=== PATIENT | female | born 1945 | race Caucasian/White ===

== ENCOUNTER 2017-03-29 11:42 | Inpatient (IN) | payer MEDICARE ==
[~2017-03-29] VITALS: Ht 157.5 cm; Wt 70.5 kg
[2017-03-29] VITALS (8 sets, daily range): BP systolic 141–161; BP diastolic 74–94; PULSE 84–97; RESP 18; TEMP 97.1–98.1; O2SAT 94–97
[~2017-03-29 11:42] MED LIST: ASPI81TA11 PO; CITA20 PO; CLOP75 PO; LIPI20TA PO; NORV5TAB PO; PRIL20TA2 PO; SERO100T PO; ZOLP10TA3 PO
[2017-03-29] MEDS ORDERED: SODIUM CHLOR 0.9% 1000 ML INJ 1,000 ML IV ONE (11:54)
[2017-03-29 12:02] LABS: I-STAT POTASSIUM 5.9 MMOL/L (3.5-4.9); I-STAT SODIUM 139 MMOL/L (138-146)
[2017-03-29 12:05] LABS: AUTOMATED NEUTROPHIL # 4.4 TH/MM3 (1.8-7.7); BASOPHIL % 0.5 % (0.0-2.0); EOSINOPHIL # 0.3 TH/MM3 (0-0.4); EOSINOPHIL % 3.7 % (0.0-4.0); HEMATOCRIT 38.8 % (35.0-46.0); HEMO FLAGS DIFF FINAL; LYMPHOCYTE # 1.6 TH/MM3 (1.0-4.8); MEAN CELL VOLUME 93.1 FL (80.0-100.0); MEAN CORPUSCULAR HEMOGLOBIN 32.2 PG (27.0-34.0); MEAN CORPUSCULAR HGB CONC 34.6 % (32.0-36.0); MONO % 7.4 % (0.0-8.0); NEUT % 64.4 % (16.0-70.0); PLATELET COUNT 289 TH/MM3 (150-450); RED BLOOD COUNT 4.16 MIL/MM3 (4.00-5.30); RED CELL DISTRIBUTION WIDTH 13.3 % (11.6-17.2); WHITE BLOOD COUNT 6.8 TH/MM3 (4.0-11.0)
--- NOTE | 2017-03-29 12:13 | RADRPT ---
EXAM DATE/TIME: 03/29/2017 11:54 [facility] COMPARISON: MRI BRAIN W/O CONTRAST, April 08, 2014, 13:30. CT BRAIN W/O CONTRAST, April 08, 2014, 9:45. INDICATIONS : Leftside weakness RADIATION DOSE: 56.38 CTDIvol (mGy) This report was called by Dr. Rodriguez to Dr. Sparks. at 12: 09 PM MEDICAL HISTORY : Non-responsive. SURGICAL HISTORY : Non-responsive. ENCOUNTER: Initial ACUITY: 1 day PAIN SCALE: Non-responsive LOCATION: Bilateral cranial TECHNIQUE: Multiple contiguous axial images were obtained of the head. Using automated exposure control and adj ustment of the mA and/or kV according to patient size, radiation dose was kept as low as reasonably a chievable to obtain optimal diagnostic quality images. FINDINGS: CEREBRUM: The ventricles are normal for age. No evidence of midline shift, mass lesion, hemorrhage or acute in farction. There is an old infarct at the right caudate head, anterior limb of the internal capsule, and anterior right basal ganglia. This was present previously. No extra-axial fluid collections are s een. POSTERIOR FOSSA: The cerebellum and brainstem are intact. The 4th ventricle is midline. The cerebellopontine angle i s unremarkable. EXTRACRANIAL: The visualized portion of the orbits is intact. There is mild bilateral maxillary sinus disease and l eft ethmoid sinus disease. SKULL: The calvaria is intact. No evidence of skull fracture. CONCLUSION: 1. No acute areas of hemorrhage or mass effect are seen. 2. 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 Leonides Rodriguez MD on March 29, 2017 at 12:05 Board Certified Radiologist. This report was verified electronically.
[2017-03-29 12:14] LABS: APTT (PATIENT) 22.4 SEC (24.3-30.1); INTERNATIONAL NORMALIZED RATIO 0.9 RATIO; PROTHROMBIN TIME - PATIENT 10.1 SEC (9.8-11.6)
[2017-03-29] MEDS: SODIUM CHLOR 0.9% 1000 ML INJ 1,000 ML IV SCH ×2 (12:24→22:10)
[2017-03-29 12:25] LABS: BETA HCG QUANT 4 MIU/ML (0-5); CREATINE KINASE 107 U/L (26-192)
[2017-03-29] MEDS: ASPIRIN EC 325 MG TABEC PO SCH (12:30)
--- NOTE | 2017-03-29 12:36 | PD ---
HPI Chief Complaint: Stroke Alert Time Seen by Provider: 11:53 Travel History International Travel<30 days: No Contact w/Intl Traveler<30days: No Traveled to known affect area: No History of Present Illness HPI This is a 71-year-old female who presents to the emergency department having altered mental status. 45 minutes prior to arrival she was at home with her and reportedly normal. She went upstairs to get changed to go out with her friends when she yelled to him and he reports she had some slurred speech and weakness. Patient isn't able to provide much history. PFSH Past Medical History Anxiety: Yes Cancer: No Cardiovascular Problems: Yes High Cholesterol: Yes Cerebrovascular Accident: Yes (2010) Diminished Hearing: No Endocrine: No GERD: Yes Genitourinary: No Hypertension: Yes Musculoskeletal: Yes Neurologic: Yes Reproductive: No Respiratory: Yes Sleep Apnea: Yes Menopausal: Yes Past Surgical History Gynecologic Surgery: Yes (HYSTERECTOMY) Hysterectomy: Yes (PARTIAL 2004) Social History Alcohol Use: Yes (socially -wine, mix drinks) Tobacco Use: No Substance Use: No Allergies-Medications (Allergen,Severity, Reaction): Coded Allergies: Flu Vaccine (Verified Allergy, Severe, Shortness of Breath, 04/08/14) Lortab (Verified Allergy, Mild, Nausea/Vomiting, 04/08/14) Reported Meds & Prescriptions Reported Meds & Active Scripts Active Plavix (Clopidogrel Bisulfate) 75 Mg Tab 75 Mg PO DAILY Reported Lipitor (Atorvastatin Calcium) 20 Mg Tab 20 Mg PO DAILY Ambien 10 Mg Tab (Zolpidem Tartrate) 10 Mg Tab 10 Mg PO DAILY Prilosec Otc (Omeprazole Magnesium) 20 Mg Tab 20 Mg PO DAILY Seroquel (Quetiapine Fumarate) 100 Mg Tab 100 Mg PO DAILY Aspirin EC (Aspirin) 81 Mg Tab 81 Mg PO DAILY Celexa 20 Mg Tab (Citalopram Hydrobromide) 20 Mg Tab 20 Mg PO DAILY Norvasc (Amlodipine Besylate) 5 Mg Tab 2.5 Mg PO DAILY Review of Systems ROS Limitations: Poor Historian Physical Exam Narrative GENERAL:Well appearing, no acute distress SKIN: Focused skin assessment warm and dry. HEAD: Atraumatic. Normocephalic. EYES: Pupils equal and round. No injection or drainage. ENT: Moist mucous membranes NECK: Trachea midline. CARDIOVASCULAR: Regular rate and rhythm. No murmur appreciated. RESPIRATORY: Clear to auscultation. Breath sounds equal bilaterally. GASTROINTESTINAL: Abdomen soft, non-tender, nondistended. MUSCULOSKELETAL: No obvious deformities. NEUROLOGICAL: Somnolent but awakens to answer questions. Able to answer her name but the month wrong.. No obvious cranial nerve deficits. Moderate dysarthria, moderate aphasia 4 out of 5 strength in the right lower extremity, otherwise extremities are strong. She has bilateral ataxia which appears to be related to attention. PSYCHIATRIC: Appropriate mood and affect; insight and judgment normal. Data Data Last Documented VS Vital Signs Date Time Temp Pulse Resp B/P Pulse Ox O2 Delivery O2 Flow Rate FiO2 03/29/17 11:50 97 Nasal Cannula 2.00 03/29/17 11:47 85 18 141/85 Orders Diet Npo (03/29/17 Lunch) Activity Bed Rest (03/29/17 ) Electrocardiogram (03/29/17 ) I-Stat Creatinine (03/29/17 11:54) I-Stat Profile (03/29/17 11:54) Prothrombin Time / Inr (Pt) (03/29/17 11:54) Act Partial Throm Time (Ptt) (03/29/17 11:54) Complete Blood Count With Diff (03/29/17 11:54) Fibrinogen (03/29/17 11:54) Creatine Kinase (Cpk) (03/29/17 11:54) Troponin I (03/29/17 11:54) Ua Includes Microscopic (03/29/17 11:54) Drug Screen, Random Urine (03/29/17 11:54) Type And Screen (03/29/17 11:54) Ct Brain W/O Iv Contrast(Rout) (03/29/17 ) Cta Brain W Iv Contrast W 3d (03/29/17 11:54) Cta Neck W Iv Contrast W 3d (03/29/17 11:54) Ct Cerebral Perf W Iv Cont W3d (03/29/17 11:54) Beta Hcg (Quant/Titer) (03/29/17 11:54) Consult Neurology (03/29/17 ) Blood Glucose (03/29/17 11:54) Ecg Monitoring (03/29/17 11:54) Neuro Checks Q2HX12,Q4H (03/29/17 11:54) Nursing Bedside Swallow Assess .ONCE (03/29/17 11:54) Iv Access Insert/Monitor (03/29/17 11:54) NPO (03/29/17 11:54) Oximetry (03/29/17 11:54) Oxygen Administration (03/29/17 11:54) Sodium Chlor 0.9% 1000 Ml Inj (Ns 1000 M (03/29/17 11:54) Resp Oxygen Rajinder C Titrat 1-4 L (03/29/17 11:54) Cath For Specimen (03/29/17 11:54) (Hub Use Only)Inp Phy Cons/Ref (03/29/17 ) Westergren Sedimentation Rate (03/29/17 12:24) Rapid Plasma Regin (Rpr) W Ttr (03/29/17 12:24) Aisha Screen (03/29/17 12:24) Thyroid Stimulating Hormone (03/29/17 12:24) Free Thyroxine (T4) (03/29/17 12:24) Vitamin B1 (Thiamine) (03/29/17 12:24) Vitamin B12 (03/29/17 12:24) Urinalysis - C+S If Indicated (03/29/17 12:24) Ammonia (03/29/17 12:24) Mri Brain W&W/O Contrast (03/29/17 12:24) Eeg Study (03/29/17 12:24) Holter Monitor Recording (03/29/17 12:24) Special Events Manager / Telemetry HU.Q8H (03/29/17 12:24) ^ Seizure Precautions (03/29/17 12:24) [place] (03/29/17 12:24) ^ Other Nursing Orders (03/29/17 12:24) Sodium Chlor 0.9% 1000 Ml Inj (Ns 1000 M (03/29/17 12:24) ^ Other Nursing Orders (03/29/17 12:24) ^ Other Nursing Orders (03/29/17 12:24) Arterial Blood Gas (Abg) (03/29/17 12:24) Drug Screen, Random Urine (03/29/17 12:24) Scd&Teds Bilateral/Knee High HU.QSHIFT (03/29/17 12:24) Admit Order (Ed Use Only) (03/29/17 12:30) Clopidogrel (Plavix) (03/30/17 09:00) Aspirin Ec (Ecotrin Ec) (03/29/17 12:30) Labs Laboratory Tests Test 03/29/17 11:49 White Blood Count 6.8 TH/MM3 Red Blood Count 4.16 MIL/MM3 Hemoglobin 13.4 GM/DL Bedside Hemoglobin 12.6 G/DL Hematocrit 38.8 % Bedside Hematocrit 37.0 % Mean Corpuscular Volume 93.1 FL Mean Corpuscular Hemoglobin 32.2 PG Mean Corpuscular Hemoglobin 34.6 % Concent Red Cell Distribution Width 13.3 % Platelet Count 289 TH/MM3 Mean Platelet Volume 8.4 FL Neutrophils (%) (Auto) 64.4 % Lymphocytes (%) (Auto) 24.0 % Monocytes (%) (Auto) 7.4 % Eosinophils (%) (Auto) 3.7 % Basophils (%) (Auto) 0.5 % Neutrophils # (Auto) 4.4 TH/MM3 Lymphocytes # (Auto) 1.6 TH/MM3 Monocytes # (Auto) 0.5 TH/MM3 Eosinophils # (Auto) 0.3 TH/MM3 Basophils # (Auto) 0.0 TH/MM3 CBC Comment DIFF FINAL Differential Comment Prothrombin Time 10.1 SEC Prothromb Time International 0.9 RATIO Ratio Activated Partial 22.4 SEC Thromboplast Time Fibrinogen 303 mg/dL Bedside Sodium 139 MMOL/L Bedside Potassium 5.9 MMOL/L Bedside Chloride 105 MMOL/L Bedside Blood Urea Nitrogen 18 MG/DL Bedside Creatinine 0.8 MG/DL Bedside Glucose 108 MG/DL Total Creatine Kinase 107 U/L Troponin I LESS THAN 0.02 NG/ML Human Chorionic Gonadotropin, 4 MIU/ML Quant MDM Medical Decision Making Medical Screen Exam Complete: Yes Emergency Medical Condition: Yes Interpretation(s) no tachycardia, mild hypertension hyperkalemia likely due to hemolysis ct: old infarct, no acute intracranial hemorrhage. Differential Diagnosis Ischemic stroke, hemorrhagic stroke, seizure, polypharmacy Narrative Course This is a 71-year-old female who presents to the emergency department with slurred speech and weakness that started 45 minutes prior to arrival. On exam she is quite somnolent and difficult to arouse but when she does awaken she is able to answer some questions. She does seem to have some dysarthria and she appears weak in the right lower extremity. She was placed on a monitor and an IV was established. She was immediately transported to CT in the setting of a stroke alert. CT imaging demonstrates an old infarct but no acute intracranial hemorrhage. Dr. Abel the neurologist came to assess the patient and on his reassessment the patient was awake, alert and able to move all extremities. Appears her symptoms have resolved. Patient will be admitted for TIA evaluation. I suspect there is some component of polypharmacy contributing to the patient's presentation as she is on seroquel and lamictal. Critical Care Narrative Aggregate critical care time was 35 minutes. Time to perform other separately billable procedures was not included in the critical care time. My time did not include minutes spent treating any other patients simultaneously or on activities that did not directly contribute to the patient's treatment. The services I provided to this patient were to treat and/or prevent clinically significant deterioration that could result in: disability, I provided critical care services requiring my management, as noted below: Chart data review, documentation time, medication orders and management, vital sign assessments/reviewing monitor data, ordering and reviewing lab tests, ordering and interpreting/reviewing x-rays and diagnostic studies, care of the patient and discussion of the patient with the admitting physicians. Diagnosis Primary Impression: TIA (transient ischemic attack) Qualified Code: G45.9 - Transient cerebral ischemia, unspecified type Admitting Information Admitting Physician Requests: Admit Brianna Sparks MD Mar 29, 2017 12:36
[2017-03-29 12:51] LABS: BLOOD GAS BASE EXCESS 0.1 mmol/L (-2-2); BLOOD GAS HCO3 25 mmol/L (22-26); BLOOD GAS METHEMOGLOBIN 0.6 % (0-2); BLOOD GAS O2 HGB SATURATION 92 % (90-100); BLOOD GAS OXYGEN CONTENT 15.3 Vol % (12.0-20.0); BLOOD GAS PCO2 43 mmHg (38-42); BLOOD GAS PO2 67 mmHG (61-120); BLOOD GAS TOTAL HGB 11.8 G/DL (12.0-16.0); CRITICAL VALUE NO; FIO2 21 %; TEMP CORR TO 98.6
[2017-03-29 12:52] LABS: DRAW SITE RT RADIAL; NUMBER OF ARTERIAL PUNCTURES 1; STAT YES; ULNAR PULSE PRESENT
--- NOTE | 2017-03-29 13:06 | MB ---
cc: MIO ESTES DATE OF CONSULTATION: 03/29/2017 HISTORY OF PRESENT ILLNESS The patient is a 71-year-old right-handed woman with history of hypertension. In 2009 she tells me she had a stroke which affected her short-term memory. She does not take an aspirin a day, however and at about 11 o'clock this morning her heard her call out and then she seemed confused, possibly a little bit of weakness on the right side. When she got to the ER a stroke alert was called. She was seen by Dr. Duong in April of 2014, came in for slurred speech, some intermittent slurring of speech, fell down some steps at that time, right arm and leg numbness. ___ but she had denied it. She had a right temporal laceration. She had a history of stroke in the past and hyperlipidemia at that time. She was on Seroquel, Lamictal, Ambien, baby aspirin and hypertensives at that time. CT showed old right carotid infarct. MRI of the brain did not show any acute infarct. 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 She added Plavix on at that time. The neck CTA was performed at that time. No evidence of significant disease, left common carotid was normal, a mild stenosis of the left subclavian. She never did have a CTA of the head at that time. REVIEW OF SYSTEMS She denies any headache. She denies any history of diabetes, [place], stent, angioplasty, atrial fibrillation, Coumadin, renal, hepatic or pulmonary disease, thyroid disease, lupus, ulcer, cancer or seizure. SOCIAL HISTORY Nonsmoker, nondrinker, lives with her . FAMILY HISTORY Negative for cancer, seizure, stroke. MEDICATIONS AT HOME 1. Amlodipine. 2. Citalopram. 3. Fenofibrate. 4. Lamictal 50 mg twice a day. 5. Protonix. 6. Oxybutynin 5 mg a day. 7. Seroquel 50 b.i.d. She evidently sees Dr. Osuna. May take some Ambien. It appears she is on Plavix and Atorvastatin and takes Lamictal also 100 b.i.d. so a total of 150 b.i.d. of Lamictal. It is unclear in my mind if she is on 50 b.i.d. of Seroquel or 100 b.i.d. PHYSICAL EXAMINATION VITAL SIGNS: Today 85, 18, 141/85. O2 sat 96%. NECK: There were no carotid bruits. HEART: Regular rhythm. I do not detect a murmur. Pupils are equal. Visual de la rosa are full. Extraocular movements intact without nystagmus. Face is symmetric. Tongue was midline. Facial sensation was intact to pinprick and there is no drift. She had normal strength in upper and lower extremities bilaterally. Toes are downgoing bilaterally. DTRs trace throughout. Pinprick was intact throughout. She knows the year. She knows she is in the hospital, although she said [facility]. Calculations and naming are normal. She showed me her left thumb well. She is a little lethargic but otherwise her neurological exam is normal. No facial droop is noted. LABORATORY DATA CBC is normal. UA has been normal in the past. Basic metabolic profile potassium 5.9, otherwise normal today. Glucose 108, LDL cholesterol was 96 back in 2013. Coags are normal today. IMAGING STUDIES CAT scan of the brain today shows old right lacunar infarct, unchanged from prior, otherwise normal. Head CTA back in April of 2015 as noted, moderately severe focal stenosis in distal left M1 in 2013. In fact looking at the films it does appear to be significantly narrowed at that time. IMPRESSION I think at this time she looks normal neurologically, I would not give her TPA. NIH stroke scale is zero. Concern is however, for this left MCA stenosis and we will have to see what an MRI shows. We are going to repeat her CTA at this time, give her some IV fluids. Will check an ABG on her, she is somewhat lethargic, hold her sedating meds. Other labs I note she had an echo in 2013 and showed a normal ejection fraction, the valves looked okay, left atrial size was normal. I am not sure why she is so lethargic, could be medication effect. We will check that blood gas and an EEG. MD FERNANDO Kemp/NATTY /12:22 PM /12:40 PM
--- NOTE | 2017-03-29 13:07 | RADRPT ---
EXAM DATE/TIME: 03/29/2017 12:23 [facility] COMPARISON: CT BRAIN W/O CONTRAST, March 29, 2017, 11:54. INDICATIONS : Left side weakness. IV CONTRAST: 60 cc Omnipaque 350 (iohexol) IV ; Cumulative dose for multiple exams. RADIATION DOSE: 14.90 CTDIvol (mGy) ; Combined studies MEDICAL HISTORY : Cerebrovascular disease. SURGICAL HISTORY : Unable to obtain ENCOUNTER: Initial ACUITY: 1 day PAIN SCALE: 0/10 LOCATION: CTA HEAD TECHNIQUE: Volumetric scanning was performed using a multi-row detector CT scanner. The data was post processed with a variety of visualization algorithms including full volume maximum intensity projection, multi -planar sliding thin slab reformation, curved planar reformation, and surface rendering techniques. Using automated exposure control and adjustment of the mA and/or kV according to patient size, radiat ion dose was kept as low as reasonably achievable to obtain optimal diagnostic quality images. FINDINGS: Both distal internal carotid arteries are widely patent. The left vertebral originates directly from the arch. Both left and right vertebral or patent. The left is quite small in size. Basilar is patent . The examination demonstrates an area of narrowing in the mid aspect of the M1 segment. There is defin itely flow distal to this. The M2 branches are unremarkable appearance. This would suggest possible i ntracranial atherosclerotic disease however, a small amount of embolic material in this area is not e xcluded. Again, there is good flow distal to this. The appearance of the right middle cerebral circulation and the anterior circulation is within normal limits. The left posterior cerebral feeds via the P-comm. The posterior cerebral circulation is otherwise wid florentin patent. CONCLUSION: 1. There is an area of narrowing in the mid aspect of the M1 segment on the left possibly representin g intracranial atherosclerotic disease. This could also represent a small amount of embolic material. There is good flow distal to this. 2. The left vertebral originates directly from the arch. 3. Right middle cerebral circulation appears patent. No large or central vessel occlusion seen. Flavio Montes MD on March 29, 2017 at 12:53 Board Certified Radiologist. This report was verified electronically.
[2017-03-29 13:24] LABS: BLOOD, URINE NEG (NEG); GLUCOSE,URINE NEG (NEG); KETONE, URINE NEG (NEG); NITRITE,URINE NEG (NEG); URINE COLOR LIGHT-YELLOW (YELLW/STRAW)
[2017-03-29 13:37] LABS: AMPHETAMINE, URINE NEG (NEG); BARBITURATES, URINE NEG (NEG); COCAINE, URINE NEG (NEG)
[2017-03-29] MEDS ORDERED: IOHEXOL 350 MG/ML 10 ML VIAL (for RAD DIAG) IV ONE (13:39)
[2017-03-29] MEDS ORDERED: ACETAMINOPHEN 325 MG TAB PO PRN (13:45)
[2017-03-29] MEDS ORDERED: SODIUM CHLORIDE 0.9% FLUSH 10 ML FLUSH IV FLUSH PRN (13:45)
[2017-03-29] MEDS ORDERED: NALOXONE HCL 0.4 MG/ML AMP IV PRN (13:45)
[2017-03-29] MEDS ORDERED: LACTULOSE SYRUP 20 GM/30 ML CUP PO PRN (13:45)
[2017-03-29] MEDS ORDERED: SENNOSIDES 8.6 MG TAB PO PRN (13:45)
[2017-03-29] MEDS ORDERED: ONDANSETRON HCL 4 MG/2 ML VIAL IVP PRN (13:45)
[2017-03-29] MEDS ORDERED: BISACODYL 10 MG SUPP RECTAL PRN (13:45)
[2017-03-29] MEDS ORDERED: MAGNESIUM HYDROXIDE SUSP 30 ML CUP PO PRN (13:45)
[2017-03-29 13:46] LABS: FREE T4 0.64 NG/DL (0.76-1.46)
--- NOTE | 2017-03-29 13:51 | RADRPT ---
EXAM DATE/TIME: 03/29/2017 12:23 [facility] COMPARISON: CTA BRAIN W 3D RECON, March 29, 2017, 12:23. CT BRAIN W/O CONTRAST, March 29, 2017, 11:54. INDICATIONS : Left side weakness. IV CONTRAST: 40 cc Omnipaque 350 (iohexol) IV RADIATION DOSE: 137.02 CTDIvol (mGy) MEDICAL HISTORY : Cerebrovascular disease. SURGICAL HISTORY : None. ENCOUNTER: Initial ACUITY: 1 day PAIN SCALE: 0/10 LOCATION: Perfusion TECHNIQUE: CT perfusion of the brain was performed with calculation of input and output functions and generation of color coded blood flow, blood volume and mean transit time maps. Using automated exposure control and adjustment of the mA and/or kV according to patient size, radiation dose was kept as low as reas onably achievable to obtain optimal diagnostic quality images. FINDINGS: There is symmetric perfusion to both cerebral hemispheres, cerebellar hemispheres and normal flow is identified to the brainstem. There are no findings of infarction or ischemic penumbra. CONCLUSION: 1. Negative CT cerebral perfusion. Flavio Montes MD on March 29, 2017 at 13:47 Board Certified Radiologist. This report was verified electronically.
--- NOTE | 2017-03-29 14:13 | RADRPT ---
EXAM DATE/TIME: 03/29/2017 12:23 [facility] COMPARISON: CTA CAROTID ARTERIES W 3D RECON, April 08, 2014, 16:10. INDICATIONS : Left side weakness IV CONTRAST: 60 cc Omnipaque 350 (iohexol) IV ; Cumulative dose for multiple exams. RADIATION DOSE: 14.90 CTDIvol (mGy) ; Combined studies MEDICAL HISTORY : Cerebrovascular disease. SURGICAL HISTORY : Unable to obtain ENCOUNTER: Initial ACUITY: 1 day PAIN SCALE: 0/10 LOCATION: CTA NECK Elevated flow velocities and ICA/CCA ratios have been found to correlate with increased degrees of vessel stenosis, calculated as percentage of diameter relative to a normal segment of distal ICA/CCA. TECHNIQUE: Volumetric scanning was performed using a multirow detector CT scanner. The data was post processed with a variety of visualization algorithms including full-volume maximum intensity projection, multip lanar sliding thin-slab reformation, curved-planar reformation, and surface-rendering techniques. Us ing automated exposure control and adjustment of the mA and/or kV according to patient size, radiatio n dose was kept as low as reasonably achievable to obtain optimal diagnostic quality images. FINDINGS: The branching pattern of the great vessels is normal. Again seen is a stenosis of the left subclavia n artery not felt to be hemodynamically significant. RIGHT CAROTID: The right carotid is tortuous without significant stenosis. LEFT CAROTID: The left carotid is tortuous without significant stenosis. Large amount of calcific plaque is seen at the origin of the left internal carotid. The left internal carotid bifurcation is high at the angle of the mandible. Both vertebral arteries are patent with the right dominant. Moderate vascular disease is present in the basilar artery. CONCLUSION: 1. There is no evidence for hemodynamically significant carotid stenosis. 2. Calcified plaque at the origin of the left internal carotid not felt to be hemodynamically signifi cant. 3. Calcification at the origin of the left subclavian not felt to be hemodynamically significant. Lg Montes MD FACR on March 29, 2017 at 13:41 Board Certified Radiologist. This report was verified electronically.
--- NOTE | 2017-03-29 14:27 | HHI.HP ---
HPI Service Family Medicine Primary Care Physician Unknown Admission Diagnosis TIA Diagnoses: International Travel<30 Days: No Contact w/Intl Traveler<30days: No Known Affected Area: No History of Present Illness 71-year-old female with a past medical history of a CVA in 2009 and TIA in 2013 presents to the emergency department with 30 minutes of altered mental status, poor balance with falling and slurred speech. The patient was getting ready to go out when her heard her fall and yelled for help. The patient hit her head on the dresser and now has a contusion on her forehead. No lacerations noted. CT of the head within normal limits. The patient then had slurred speech and was not making sense according to her . She lost her balance and multiple other occasions and her called EMS. The patient was a stroke alert in the [place] emergency department and was seen by Dr. Abel who recommended ABG any G given patient's persistent lethargy. NIH stroke scale of 0. Not a candidate for TPA. (Cady Garner MD R3) Review of Systems Other Denies fever or chills Denies blurry vision, otorrhea, rhinorrhea Chronic headaches Denies sore throat and cough No chest pain, palpitations, shortness of breath No abdominal pain Denies constipation/diarrhea/nausea/vomiting Denies muscle pain/weakness No rashes (Cady Garner MD R3) Past Family Social History Past Medical History Hypertension Hyperlipidemia CVA 2009 TIA 2013 Unspecified mood disorder (Patient on Lamictal, Seroquel, citalopram) Past Surgical History Hysterectomy Right knee surgery Orthopedic surgery in one arm ( cannot remember which one) Reported Medications Reported Meds & Active Scripts Active Plavix (Clopidogrel Bisulfate) 75 Mg Tab 75 Mg PO DAILY Reported Lipitor 20 Mg Tab (Atorvastatin Calcium) 20 Mg Tab 20 Mg PO DAILY Ambien 10 Mg Tab (Zolpidem Tartrate) 10 Mg Tab 10 Mg PO DAILY Prilosec Otc (Omeprazole Magnesium) 20 Mg Tab 20 Mg PO DAILY Seroquel 100 mg (Quetiapine Fumarate) 100 Mg Tab 100 Mg PO DAILY Aspirin EC 81 mg (Aspirin) 81 Mg Tab 81 Mg PO DAILY Celexa 20 Mg Tab (Citalopram Hydrobromide) 20 Mg Tab 20 Mg PO DAILY Norvasc (Amlodipine Besylate) 5 Mg Tab 2.5 Mg PO DAILY Lamotrigine 150 mg twice a day (Cady Garner MD R3) Allergies: Coded Allergies: Flu Vaccine (Verified Allergy, Severe, Shortness of Breath, 04/08/14) Lortab (Verified Allergy, Mild, Nausea/Vomiting, 04/08/14) Family History Father of stroke at age 64. Mom lived until her 80s. Social History Occasional alcohol. No marijuana or illicit drugs. Never smoker. (Cady Garner MD R3) Physical Exam Vital Signs Vital Signs Date Time Temp Pulse Resp B/P Pulse Ox O2 Delivery O2 Flow Rate FiO2 03/29/17 11:50 97 Nasal Cannula 2.00 03/29/17 11:47 85 18 141/85 96 03/29/17 11:45 95 Nasal Cannula 4 03/29/17 11:45 18 95 Nasal Cannula 4 Physical Exam Gen.: No acute distress, lethargic Head: Normocephalic. Swelling on forehead measuring approximately 3 x 4 cm, no erythema or ecchymosis. EENT: Pupils equal round and reactive to light. Nose without drainage. Airway intact. Throat without injection. Cardiovascular: Regular rate and rhythm. No murmurs, rubs or gallops. Respiratory: Lungs clear to auscultation bilaterally. No wheezes or rhonchi. Abdomen: Soft, nontender, nondistended. No peritoneal signs. Musculoskeletal: No gross deformities. No edema. Skin: No obvious rashes or erythema. Neuro: 5/5 strength throughout. No lateralizing signs. Cranial nerves II through XII intact. Patient lethargic and slow to respond however does rouse to voice. Speech intact. Laboratory Laboratory Tests Test 03/29/17 03/29/17 03/29/17 03/29/17 11:49 12:20 12:37 13:05 White Blood Count 6.8 Red Blood Count 4.16 Hemoglobin 13.4 Bedside Hemoglobin 12.6 Hematocrit 38.8 Bedside Hematocrit 37.0 Mean Corpuscular Volume 93.1 Mean Corpuscular Hemoglobin 32.2 Mean Corpuscular Hemoglobin 34.6 Concent Red Cell Distribution Width 13.3 Platelet Count 289 Mean Platelet Volume 8.4 Neutrophils (%) (Auto) 64.4 Lymphocytes (%) (Auto) 24.0 Monocytes (%) (Auto) 7.4 Eosinophils (%) (Auto) 3.7 Basophils (%) (Auto) 0.5 Neutrophils # (Auto) 4.4 Lymphocytes # (Auto) 1.6 Monocytes # (Auto) 0.5 Eosinophils # (Auto) 0.3 Basophils # (Auto) 0.0 CBC Comment DIFF FINAL Differential Comment Erythrocyte Sedimentation Rate 34 Prothrombin Time 10.1 Prothromb Time International 0.9 Ratio Activated Partial 22.4 Thromboplast Time Fibrinogen 303 Bedside Sodium 139 Bedside Potassium 5.9 Bedside Chloride 105 Bedside Blood Urea Nitrogen 18 Bedside Creatinine 0.8 Bedside Glucose 108 Total Creatine Kinase 107 Troponin I LESS THAN 0.02 Vitamin B12 Level 913 Free Thyroxine 0.64 Thyroid Stimulating Hormone 1.870 3rd Gen Human Chorionic Gonadotropin, 4 Quant Blood Type B POSITIVE Antibody Screen NEGATIVE Urine Color LIGHT-YELLOW Urine Turbidity CLEAR Urine pH 7.0 Urine Specific [place] 1.023 Urine Protein NEG Urine Glucose (UA) NEG Urine Ketones NEG Urine Occult Blood NEG Urine Nitrite NEG Urine Bilirubin NEG Urine Urobilinogen LESS THAN 2.0 Urine Leukocyte Esterase NEG Urine RBC LESS THAN 1 Urine WBC 1 Microscopic Urinalysis Comment Urine Opiates Screen NEG Urine Barbiturates Screen NEG Urine Amphetamines Screen NEG Urine Benzodiazepines Screen NEG Urine Cocaine Screen NEG Urine Cannabinoids Screen NEG Blood Gas Puncture Site RT RADIAL Blood Gas Patient Temperature 98.6 Blood Gas HCO3 25 Blood Gas Base Excess 0.1 Blood Gas Oxygen Saturation 92 Arterial Blood pH 7.38 Arterial Blood Partial 43 Pressure CO2 Arterial Blood Partial 67 Pressure O2 Arterial Blood Oxygen Content 15.3 Arterial Blood 1.0 Carboxyhemoglobin Arterial Blood Methemoglobin 0.6 Blood Gas Hemoglobin 11.8 Blood Gas Inspired Oxygen 21 Ammonia 20 (Cady Garner MD R3) Result Diagram: 03/29/17 1149 Assessment and Plan Assessment and Plan 71-year-old female with altered mental status and multiple falls presents to the emergency department as a stroke alert. 1. Altered mental status/TIA/lethargy Patient with history of CVA and TIA in the past. CTA showed an area of narrowing in the mid M1 segment with good distal flow, this is stable from scan in 2014. Neurology consulted, appreciate recommendations. Seen by Dr. Abel , NIHSS of 0. Not a candidate for TPA. Patient remains lethargic. ABG within normal limits. EEG pending. UDS negative. Concern for polypharmacy as patient is on Lamictal, Ambien and Seroquel. IV fluids, diet once patient passes bedside swallow eval, PT Monitor labs 2. Chronic medical problems Hypertension: Continue home amlodipine Hyperlipidemia: Lipid panel pending, continue home atorvastatin Unspecified mood disorder: Holding Lamictal and Seroquel as patient is sedated , continue home citalopram 3. FEN Fluids: normal saline at 75 cc/hour Heart healthy diet once patient passes bedside swallow eval Electrolytes: Repeating as patient hyperkalemic in POC testing Anticoagulation. Patient on aspirin and Plavix, SCDs Code Status Full code (Cady Garner MD R3) Attending Attestation The patient has been seen and examined. The chart and all resident notes have been reviewed. I agree that inpatient care is appropriate and that a two midnight stay is expected for the reasons documented in the resident history and physical. I have discussed this with the resident and certify the resident s order for inpatient admission. Patient seen and examined. Case reviewed and discussed Please refer to resident H&P for further details regarding HPI, ROS, PMH, SurgHx , FH and Sochx In summary, patient is a 71yoF with a history of CVA presenting with after a fall at home and AMS She was a stroke alert on arrival to ED I am seeing her in her hospital bed, at bedside She is feeling better, but continues to forget she is HOB flat and frequently sits upright during encounter after just being reminded to lay down GENERAL: wdwn female, NAD, awake, alert, oriented SKIN: Warm and dry. NO rashes. HEAD: Normocephalic. AT EYES: No scleral icterus. No injection or drainage. ENT: OP Clear. MMM NECK: Supple, trachea midline. No JVD or lymphadenopathy. CARDIOVASCULAR: Regular rate and rhythm without murmurs, gallops, or rubs. RESPIRATORY: Breath sounds equal bilaterally. No accessory muscle use. GASTROINTESTINAL: Abdomen soft, non-tender, nondistended. normal active BS MUSCULOSKELETAL: No cyanosis, or edema. NO calf tenderness BACK: Nontender without obvious deformity. No CVA tenderness. NEURO: Awake and alert. Oriented. CN grossly intact. strength 4/5 x 4 71yoF admitted with: Acute neurologic event/AMS r/o CVA/TIA vs polypharmacy Lethargy Hyperkalemia Elevated ESR Hypertension Hyperlipidemia CVA 2009 TIA 2013 Unspecified mood disorder (Patient on Lamictal, Seroquel, citalopram) Stroke protocol Neuro consulted, appreciate Dr. Abel MRI pending ASA, statin HOB flat x 12 h Permissive HTN HOld sedating meds Neuro checks DVT proph Patient seen and examined Case reviewed and discussed Agree with plan of care as discussed with me and documented in the resident note. (Luisa Dinh MD) Problem List: (1) Hyperlipidemia Status: Acute (2) Hypertension Status: Acute (3) TIA (transient ischemic attack) Status: Acute (4) Hyperkalemia Status: Acute (5) Lethargy Status: Acute (6) Altered mental status Status: Acute (Cady Garner MD R3) Physician Certification 2 Midnight Certification Type: Admission for Inpatient Services Order for Inpatient Services The services are ordered in accordance with Medicare regulations or non- Medicare payer requirements, as applicable. In the case of services not specified as inpatient-only, they are appropriately provided as inpatient services in accordance with the 2-midnight benchmark. Estimated LOS (days): 2 2 days is the estimated time the patient will need to remain in the hospital, assuming treatment plan goals are met and no additional complications. Post-Hospital Plan: Not yet determined (Cady Garner MD R3) Problem Qualifiers (1) TIA (transient ischemic attack): Qualified Code: G45.9 - Transient cerebral ischemia, unspecified type Cady Garner MD R3 Mar 29, 2017 14:27 Luisa Dinh MD Mar 29, 2017 21:01
[2017-03-29] MEDS ORDERED: FENO54TA PO (15:40)
[2017-03-29] MEDS ORDERED: AMLO2.5T PO (15:47)
[2017-03-29] MEDS ORDERED: ZOLP10TA3 PO (15:47)
[2017-03-29] MEDS ORDERED: PLAV75TA29 PO (15:47)
[2017-03-29] MEDS ORDERED: OXYB5TAB10 PO (15:47)
[2017-03-29] MEDS ORDERED: ATOR20TA15 PO (15:47)
[2017-03-29] MEDS ORDERED: PREV15CA15 PO (15:47)
[2017-03-29] MEDS ORDERED: SERO50TA PO (15:47)
[2017-03-29] MEDS ORDERED: CELE20TA PO (15:47)
[2017-03-29] MEDS ORDERED: LAMO150 PO (15:50)
[2017-03-29] MEDS ORDERED: QUET1TAB7 PO (15:51)
[2017-03-29] MEDS ORDERED: GADODIAMIDE PF 287 MG/ML 5 ML VIAL (for RAD MRI) IV ONE (16:07)
--- NOTE | 2017-03-29 16:20 | RADRPT ---
EXAM DATE/TIME: 03/29/2017 15:27 [facility] COMPARISON: MRI BRAIN W/O CONTRAST, April 08, 2014, 13:30. INDICATIONS : Stroke alert. Slurred speech. CONTRAST: 12 cc Omniscan (gadodiamide) IV MEDICAL HISTORY : Hypertension. SURGICAL HISTORY : Hysterectomy. Wrist/ankle ENCOUNTER: Initial ACUITY: 1 day PAIN SCORE: 0/10 LOCATION: head TECHNIQUE: Multiplanar, multisequence MRI of the brain was performed both prior to and following the administrat ion of paramagnetic contrast. FINDINGS: CEREBRUM: The ventricles are normal for age. No evidence of midline shift, mass lesion, hemorrhage or acute in farction. There is an old lacunar infarct involving the right caudate nucleus. No extraaxial fluid co llections are seen. The pituitary gland and suprasellar cistern are normal in configuration. WHITE MATTER: No significant signal abnormalities are seen in the white matter. POSTERIOR FOSSA: The cerebellum and brainstem are intact. The 4th ventricle is midline. The cerebellopontine angle is unremarkable. The cerebellar tonsils are normal in position. DIFFUSION IMAGING: No focal areas of restricted diffusion are seen. No evidence of acute infarction. EXTRACRANIAL: The visualized portions of the orbits and paranasal sinuses are unremarkable. POST-CONTRAST: No abnormal areas of parenchymal or dural enhancement. No evidence of blood-brain barrier breakdown. CONCLUSION: 1. Old lacunar infarct in the caudate nucleus on the right. 2. No definite abnormal signal seen to suggest acute cortical infarction. Flavio Montes MD on March 29, 2017 at 16:13 Board Certified Radiologist. This report was verified electronically.
[2017-03-29] MEDS: DOCUSATE SODIUM 50 MG/SENNA 8.6 MG TAB PO SCH (21:00)
[2017-03-29] MEDS: SODIUM CHLORIDE 0.9% FLUSH 10 ML FLUSH IV FLUSH SCH (22:09)
--- NOTE | 2017-03-29 23:12 | MG ---
cc: VIDAL MCBRIDE MD Lab No: [id number] Date: 03/29/17 Age: 71 Sex: F Race: 8-12 Hz activity, significant myogenic artifact in the frontal channels occurring, then begin to clear up. Good anterior to posterior gradient. Attenuation slowing of background, transition into drowsy state followed by stage I and stage II sleep with the appearance of spindles; however, frequent arousals with good background activity resumption of awake EEG. Appeared to go in and out of asleep, moderate artifact. Limited driving with photic stimulation. Single EKG showing sinus rhythm. INTERPRETATION Appearance of normal awake, sleep EEG. Frequent arousals during sleep. Mild to moderate myogenic artifact. Clinical correlation. Vidal Mcbride MD MG/EO /10:31 PM /11:06 PM
[2017-03-29 23:20] LABS: BICARBONATE 22.1 MEQ/L (21.0-32.0)
[2017-03-29 23:21] LABS: POTASSIUM 5.8 MEQ/L (3.5-5.1)
[2017-03-30] VITALS: BP_SYST 133; BP_SYST 193; BP_DIAS 67; BP_DIAS 68; PULSE 106; PULSE 88; RESP 20; TEMP 96; TEMP 97.2; O2SAT 90; O2SAT 97
[2017-03-30] MEDS ORDERED: MELATONIN 5 MG TAB PO ONE
[2017-03-30] MEDS ORDERED: cloNIDine HCL 0.1 MG TAB PO PRN (02:15)
[2017-03-30 02:36] LABS: BICARBONATE 28.8 MEQ/L (21.0-32.0); POTASSIUM 3.7 MEQ/L (3.5-5.1)
[2017-03-30 04:00] VITALS: BP 102/66; PULSE 71; RESP 18; TEMP 95.7; O2SAT 94
--- NOTE | 2017-03-30 07:24 | HHI.PR ---
Subjective Remarks sr Objective Vital Signs Date Time Temp Pulse Resp B/P Pulse Ox O2 Delivery O2 Flow Rate FiO2 03/30/17 04:00 95.7 71 18 102/66 94 03/30/17 00:00 97.2 106 20 193/67 90 03/30/17 00:00 96.0 88 20 133/68 97 03/29/17 23:00 97 03/29/17 20:00 97.1 93 18 161/74 94 03/29/17 19:57 96 Nasal Cannula 2.00 03/29/17 17:28 84 03/29/17 17:03 98.1 90 18 150/94 96 03/29/17 11:50 97 Nasal Cannula 2.00 03/29/17 11:47 85 18 141/85 96 03/29/17 11:45 95 Nasal Cannula 4 03/29/17 11:45 18 95 Nasal Cannula 4 I/O 03/29/17 03/29/17 03/29/17 03/30/17 03/30/17 03/30/17 07:00 15:00 23:00 07:00 15:00 23:00 Output Total 4 ml Balance -4 ml Output Urine Total 4 ml Result Diagram: 03/29/17 1149 03/30/17 0152 Other Results cta stable left mca dz stenosis cta neck neg mri brain neg new old r eeg neg Objective Remarks awake alert nl speech not weak Assessment and Plan Assessment and Plan imp tells me she fell she is on plavix at home to call me today for eyewitness and if she had definite weak on r i would change to coumadin check ldl possible dc later today dep on my conversation with Felix Abel MD Mar 30, 2017 07:24
[2017-03-30 08:00] VITALS: BP 140/65; PULSE 74; RESP 20; TEMP 97; O2SAT 97
[2017-03-30] MEDS: DOCUSATE SODIUM 50 MG/SENNA 8.6 MG TAB PO SCH (08:05)
[2017-03-30] MEDS: ASPIRIN EC 325 MG TABEC PO SCH (08:05)
[2017-03-30] MEDS: SODIUM CHLORIDE 0.9% FLUSH 10 ML FLUSH IV FLUSH SCH (08:07)
[2017-03-30 08:19] LABS: HDL CHOLESTEROL 32.6 MG/DL (40.0-60.0)
[2017-03-30] MEDS ORDERED: ATORVASTATIN 20 MG TAB PO SCH (09:00)
[2017-03-30] MEDS ORDERED: ASPIRIN EC 81 MG TABEC PO SCH (09:00)
[2017-03-30] MEDS ORDERED: QUEtiapine FUMARATE 100 MG TAB PO SCH (09:00)
[2017-03-30] MEDS ORDERED: CLOPIDOGREL 75 MG TAB PO SCH (09:00)
[2017-03-30] MEDS ORDERED: OXYBUTYNIN CHLORIDE 5 MG TAB PO SCH (09:00)
[2017-03-30] MEDS ORDERED: PANTOPRAZOLE SOD 20 MG DELAYED RELEASE TAB PO SCH (09:00)
[2017-03-30] MEDS ORDERED: ZOLPIDEM TARTRATE 10 MG TAB PO SCH (09:00)
[2017-03-30] MEDS ORDERED: FENOFIBRATE 48 MG TAB PO SCH (09:00)
[2017-03-30] MEDS ORDERED: LANSOPRAZOLE 15 MG PO SCH (09:00)
[2017-03-30] MEDS ORDERED: amLODIPine BESYLATE 5 MG TAB PO SCH (09:00)
[2017-03-30] MEDS ORDERED: CITALOPRAM HYDROBROMIDE 20 MG TAB PO SCH (09:00)
[2017-03-30 09:07] LABS: AUTOMATED NEUTROPHIL # 5.2 TH/MM3 (1.8-7.7); BASOPHIL % 0.4 % (0.0-2.0); EOSINOPHIL # 0.3 TH/MM3 (0-0.4); EOSINOPHIL % 3.9 % (0.0-4.0); HEMATOCRIT 37.5 % (35.0-46.0); HEMO FLAGS DIFF FINAL; LYMPH % 21.1 % (9.0-44.0); LYMPHOCYTE # 1.6 TH/MM3 (1.0-4.8); MEAN CELL VOLUME 92.4 FL (80.0-100.0); MEAN CORPUSCULAR HEMOGLOBIN 31.6 PG (27.0-34.0); MEAN CORPUSCULAR HGB CONC 34.2 % (32.0-36.0); MONO % 6.8 % (0.0-8.0); NEUT % 67.8 % (16.0-70.0); PLATELET COUNT 290 TH/MM3 (150-450); RED BLOOD COUNT 4.05 MIL/MM3 (4.00-5.30); WHITE BLOOD COUNT 7.6 TH/MM3 (4.0-11.0)
[2017-03-30 09:38] LABS: ANION GAP 7 MEQ/L (5-15); BICARBONATE 25.6 MEQ/L (21.0-32.0); BLOOD UREA NITROGEN 13 MG/DL (7-18); CHLORIDE 103 MEQ/L (98-107); GLOMERULAR FILTRATION RATE 70 ML/MIN (>89); POTASSIUM 3.5 MEQ/L (3.5-5.1); SODIUM (NA) 136 MEQ/L (136-145)
[2017-03-30 09:40] LABS: ALKALINE PHOSPHATASE 122 U/L (45-117); ALT (GPT) 36 U/L (10-53); HDL CHOLESTEROL 35.5 MG/DL (40.0-60.0); TOTAL BILIRUBIN ADULT 0.5 MG/DL (0.2-1.0)
[2017-03-30 10:09] LABS: AST (GOT) 29 U/L (15-37); LDL CHOLESTEROL 87 MG/DL (0-99)
[2017-03-30 10:23] LABS: RAPID PLASMA REAGIN SCREEN NON-REACTIVE (NON-REACTVE)
--- NOTE | 2017-03-30 11:06 | MB ---
cc: FELIX ESTES M.D. DATE OF CONSULTATION 03/30/2017 I did talk with her today. She was doing fine and peppy and then he heard fall in the room, came in. She seemed confused. She was talking about their daughter and her in a confused manner but not aphasic. There was no facial droop or right-sided weakness. He was able to get her up on the bed but her gait was unsteady and then she seemed to be getting a bit worse and the boat worker came. They thought maybe she was having a stroke and she was brought to the hospital. When I saw her in the hospital she was just lethargic but intact neurologically, had a little bit of slurred speech but nothing major. There was no asymmetry. 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 I would add a baby aspirin onto the Plavix and keep her on the statin. If she would have anything in the future that looked like a definite TIA, I told her , such as a right facial droop or right-sided weakness or numbness, then she could be considered to switch to Coumadin but on the basis of the workup and information we had on this admission I would not take that step. I would just had a baby aspirin on at this time. She could be discharged and follow up with Dr. Osuna her neurologist. Felix Estes MD DJM/SSB /10:27 AM /11:02 AM
[2017-03-30 11:34] VITALS: PULSE 64
[2017-03-30] MEDS ORDERED: ASPI81CH CHEW (11:40)
--- NOTE | 2017-03-30 11:41 | HHI.DCPOC ---
Discharge Care Plan Goals to Promote Your Health * To prevent worsening of your condition and complications follow all discharge instructions * To maintain your health at the optimal level take all medications as prescribed. Directions to Meet Your Goals Take your medications as prescribed Follow your dietary instruction Follow activity as directed Keep your appointments as scheduled Take your immunizations and boosters as scheduled If your symptoms worsen call your PCP, if no PCP go to Urgent Care Center or Emergency Room Smoking is Dangerous to Your Health. Avoid second hand smoke Call the 24-hour hour crisis hotline for domestic abuse at Cady Garner MD R3 Mar 30, 2017 11:41
--- NOTE | 2017-03-30 11:55 | HHI.FPPN ---
Subjective Remarks No acute events overnight. Afebrile, vital signs stable. Patient states she is feeling better this morning. His no longer lethargic or confused. She is ready to go home. (Cady Garner MD R3) Objective Vitals Vital Signs Date Time Temp Pulse Resp B/P Pulse Ox O2 Delivery O2 Flow Rate FiO2 03/30/17 11:34 64 03/30/17 08:00 97.0 74 20 140/65 97 03/30/17 04:00 95.7 71 18 102/66 94 03/30/17 00:00 97.2 106 20 193/67 90 03/30/17 00:00 96.0 88 20 133/68 97 03/29/17 23:00 97 03/29/17 20:00 97.1 93 18 161/74 94 03/29/17 19:57 96 Nasal Cannula 2.00 03/29/17 17:28 84 03/29/17 17:03 98.1 90 18 150/94 96 I/O 03/29/17 03/29/17 03/29/17 03/30/17 03/30/17 03/30/17 07:00 15:00 23:00 07:00 15:00 23:00 Output Total 4 ml Balance -4 ml Output Urine Total 4 ml (Cady Garner MD R3) Result Diagram: 03/30/1782803/30/17 0829 Objective Remarks Gen.: No acute distress Head: Normocephalic. Atraumatic. EENT: Pupils equal round and reactive to light. Nose without drainage. Airway intact. Throat without injection. Cardiovascular: Regular rate and rhythm. No murmurs, rubs or gallops. Respiratory: Lungs clear to auscultation bilaterally. No wheezes or rhonchi. Abdomen: Soft, nontender, nondistended. No peritoneal signs. Musculoskeletal: No gross deformities. No edema. Skin: No obvious rashes or erythema. Neuro: Sensory and motor grossly intact. Cranial nerves II through XII grossly intact. Psych: Appropriate mood and affect (Cady Garner MD R3) A/P Assessment and Plan 71-year-old female with altered mental status and multiple falls presents to the emergency department as a stroke alert. 1. Altered mental status/TIA/lethargy Patient with history of CVA and TIA in the past. CTA showed an area of narrowing in the mid M1 segment with good distal flow, this is stable from scan in 2014. Neurology consulted, appreciate recommendations. Seen by Dr. Abel , NIHSS of 0. Not a candidate for TPA. Ray and MRI, head CTA, head and neck CTA, neck CTA and head CT all within normal limits Lethargy and altered mental status has resolved Given the patient did not have any lateralizing symptoms and had an and IHSS score of 0, neurology recommends adding aspirin to her Plavix. If she develops lateralizing symptoms she may be a good candidate for Coumadin. She is to follow-up with her neurologist. Discharged home today 2. Chronic medical problems Hypertension: Continue home amlodipine Hyperlipidemia: continue home atorvastatin Unspecified mood disorder: Holding Lamictal and Seroquel as patient is sedated , continue home citalopram. Patient will resume her home medications on discharge. 3. FEN Fluids: Hep-Lock IV Heart healthy diet Electrolytes: Within normal limits Anticoagulation. Patient on aspirin and Plavix, SCDs (Cady Garner MD R3) Attending Attestation Patient seen and examined. Case reviewed and discussed Agree with plan of care as discussed with me and documented in the resident note. (Luisa Dinh MD) Problem List: (1) Hyperlipidemia Status: Acute (2) Hypertension Status: Acute (3) TIA (transient ischemic attack) Status: Acute (4) Hyperkalemia Status: Acute (5) Lethargy Status: Acute (6) Altered mental status Status: Acute (Cady Garner MD R3) Problem Qualifiers (1) TIA (transient ischemic attack): Qualified Code: G45.9 - Transient cerebral ischemia, unspecified type Cady Garner MD R3 Mar 30, 2017 11:55 Luisa Dinh MD Apr 03, 2017 14:38
--- NOTE | 2017-03-30 13:55 | EKG ---
Date Performed: 03/29/2017 Time Performed: 13:25:34 PTAGE: 71 years EKG: Sinus rhythm NORMAL ECG Compared to prior tracing no significant change PREVIOUS TRACING : 04/08/2014 10.09 DOCTOR: Denia Denson Interpretating Date/Time 03/30/2017 13:48:11
[2017-03-31 15:47] LABS: ANA SCREEN NEG (NEG)
--- NOTE | 2017-04-01 12:21 | HM ---
Date Performed: 03/31/2017 Time Performed: 10:36:00 HOOKUP DATE: 03/31/17 10:36:00 AM Fri ANALYSIS START TIME: 03/31/2017 10:41:00 AM ANALYSIS END TIME: 04/01/2017 10:44:59 AM PATIENT AGE: 71 PATIENT HEIGHT PATIENT WEIGHT DRUG LIST PATIENT DIAGNOSIS: Stroke Alert TEST NARRATIVE: The patient's average heart rate was 72 BPM. No episodes of tachycardia wer e noted. No episodes of bradycardia were noted. No pauses exceeding 2.0 seconds were noted. 1 ventricular ectopics, which represented < 1% of the total beat count, were noted. The highest vent ricular ectopic frequency occurred from 07:00 AM to 08:00 AM Sat. During this time 1 VE(s) occurred. Ventricular ectopics were observed as 1 isolated beat(s) only. No couplets or runs were noted. 7 supraventricular ectopics, which represented < 1% of the total beat count, were noted. The highes t supraventricular ectopic frequency occurred from 07:00 AM to 08:00 AM Sat. During this time 3 SVE( s) occurred. No episodes of ST depression (defined as -1.0 mm or more) were noted in channel 1. No episodes of ST depression (defined as -1.0 mm or more) were noted in channel 2. No episodes of ST depression (defined as -1.0 mm or more) were noted in channel 3. No dairy was returned with thi s monitor. TEST INTERPRETATION: Holter demonstrates normal Sinus rhythm with a very rare PAC and PVC. Sinus tachycardia to 114 bpm was seen at 10:40 am. Signed by : Felix Dill
== END 2017-03-30 12:24 | disposition home or self-care (01) | DRG 69 ==
LOC: NEPE 11:42 → NEDA 12:32 → N05A 16:17
PROVIDERS: ADMIT Family Medicine; ATTEND Family Medicine
DX: G45.9 Transient cerebral ischemic attack, unspecified (principal); I66.02 Occlusion and stenosis of left middle cerebral artery; E87.5 Hyperkalemia; R47.1 Dysarthria and anarthria; I10 Essential (primary) hypertension; E78.5 Hyperlipidemia, unspecified; R41.82 Altered mental status, unspecified; Z79.02 Long term (current) use of antithrombotics/antiplatelets; Z79.82 Long term (current) use of aspirin; Z86.73 Personal history of transient ischemic attack (TIA), and cerebral infarction without residual deficits; S00.83XA Contusion of other part of head, initial encounter; W22.09XA Striking against other stationary object, initial encounter; W18.30XA Fall on same level, unspecified, initial encounter; Y92.009 Unspecified place in unspecified non-institutional (private) residence as the place of occurrence of the external cause; F39 Unspecified mood [affective] disorder; R29.700 NIHSS score 0
CPT/HCPCS: 0042T; 36600; 70450; 70496; 70498; 70553; 80048; 80053; 80061; 80307; 81001; 82140; 82435; 82550; 82565; 82607; 82805; 82947; 82948; 84132; 84295; 84425; 84439; 84443; 84484; 84520; 84702; 85025; 85384; 85610; 85652; 85730; 86038; 86592; 86850; 86900; 86901; 93005; 93225; 93226; 95819; 96360; A9579; J7030; Q9967